=== PATIENT | female | born 1945 | race Caucasian/White ===

== ENCOUNTER 2022-10-05 20:25 | Emergency (ER) | payer MEDICARE ==
--- NOTE | 2022-10-05 20:53 | ERPHSYRPT ---
- History of Present Illness Source: patient Exam Limitations: no limitations Patient Subjective Stated Complaint: pt states I was taking out boxing and missed the last step Triage Nursing Assessment: pt came into the er via wheelchair; pt transfered to cot per self; pt is axo x4; c/o rt foot injury; no respiratory distress present; good cap refill to RLE; strong rt pedal pulse; limited ROM to RLE; hypertensive: skin PDW Physician History: 77 yo wf slipped and fell after missing bottom step at her house 2 hours ago. Pt complains of R foot pain which is moderate and worse w weight bearing. She denies other injuries at this time, including head injury/cervical, thoracic, and lumbar injury/chest-thoracic pain/abdominal pain/upper extremity pain/hip pain. Method of Injury: fell Occurred: hours ago (2 hours) Quality: constant, aching Severity of Pain-Max: moderate Severity of Pain-Current: moderate Lower Extremities Pain: ankle: right Modifying Factors: Improves With: movement (Weight besring) Allergies/Adverse Reactions: No Known Drug Allergies Allergy (Unverified 10/05/22 20:30) Home Medications: Dorzolamide HCl/Timolol Maleat [Dorzolamide-Timolol Eye Drops] 1 drop OP BID 10/05/22 [History] Latanoprost/Pf [Latanoprost 0.005% Eye Drop] 1 drop OP HS 10/05/22 [History] Levothyroxine Sodium [Levothyroxine] 150 mcg PO DAILY 10/05/22 [History] Rosuvastatin Calcium 10 mg PO DAILY 10/05/22 [History] Hx Tetanus, Diphtheria Vaccination/Date Given: Yes Hx Influenza Vaccination/Date Given: Yes Hx Pneumococcal Vaccination/Date Given: Yes Travel Risk - International Travel Have you traveled outside of the country in past 3 weeks: No - Coronavirus Screening Are you exhibiting any of the following symptoms?: No Close contact with a COVID-19 positive Pt in past 14-21 Days: No - Vaccine Status Have you recieved a Covid-19 vaccination: Yes [employer]: Moderna - Vaccination Dates Date of 2cond Vaccination (if applicable): 11/30/20 - Review of Systems Constitutional: No Symptoms Eyes: No Symptoms Ears, Nose, & Throat: No Symptoms Respiratory: No Symptoms Cardiac: No Symptoms Abdominal/Gastrointestinal: No Symptoms Genitourinary Symptoms: No Symptoms Skin: No Symptoms Neurological: No Symptoms Psychological: No Symptoms Endocrine: No Symptoms Hematologic/Lymphatic: No Symptoms Immunological/Allergic: No Symptoms - Past Medical History Pertinent Past Medical History: Yes Neurological History: No Pertinent History ENT History: Cataracts, Glaucoma Cardiac History: No Pertinent History Respiratory History: No Pertinent History Endocrine Medical History: Hypothyroidism Musculoskeletal History: Arthritis GI Medical History: Hemorrhoids History: No Pertinent History Psycho-Social History: No Pertinent History Female Reproductive Disorders: No Pertinent History - Past Surgical History Past Surgical History: Yes Neuro Surgical History: No Pertinent History Cardiac: No Pertinent History Respiratory: No Pertinent History Gastrointestinal: Hemorrhoidectomy Genitourinary: No Pertinent History Musculoskeletal: No Pertinent History Female Surgical History: No Pertinent History - Social History Smoking Status: Never smoker Exposure to second hand smoke: No Drug Use: none Patient Lives Alone: Yes - Nursing Vital Signs Nursing Vital Signs: Initial Vital Signs Temperature 98.5 F 10/05/22 20:32 Pulse Rate 80 10/05/22 20:32 Respiratory Rate 20 10/05/22 20:32 Blood Pressure 178/116 10/05/22 20:32 O2 Sat by Pulse Oximetry 97 10/05/22 20:32 Pain Scale Pain Intensity 5 Hypertensive - Physical Exam General Appearance: no apparent distress Eyes, Ears, Nose, Throat Exam: normal ENT inspection, TMs normal, pharynx normal, moist mucous membranes Neck Exam: normal inspection (C-spine NTTP) Cardiovascular/Respiratory Exam: chest non-tender, regular rate/rhythm, rales (Rales at bases B) Gastrointestinal/Abdominal Exam: non-tender, soft Back Exam: normal inspection, normal range of motion, No CVA tenderness, No vertebral tenderness Hips Exam: bilateral: non-tender, normal inspection, normal range of motion, no evidence of injury Legs Exam: bilateral leg: non-tender, normal inspection, normal range of motion, no evidence of injury Knees Exam: bilateral knee: non-tender, normal inspection, normal range of motion, no evidence of injury Ankle Exam: bilateral ankle: non-tender, normal inspection, normal range of motion, no evidence of injury Foot Exam: right foot: bone tenderness (TTP R dorsal foot w moderate TTP/Good pedal pulse, distal sensation, and capillary return) Neuro/Tendon Exam: normal sensation, normal motor functions, normal tendon functions, responds to pain, no evidence tendon injury, No motor deficit, No sensory deficit Mental Status Exam: alert, oriented x 3, cooperative Skin Exam: normal color, warm, dry SpO2 Interpretation: normal SpO2: 97 O2 Delivery: Room Air - Course Nursing assessment & vital signs reviewed: Yes - Radiology Exams Ankle X-ray Interpretation: Interpreted by me (Neg) Foot X-ray Interpretation: Discussed w/ radiologist (R foot neg per Rad) Ordered Tests: Active Orders 24 hr Category Date Time Status [facility] 10/05/22 21:25 Completed Splint STAT Care 10/05/22 21:25 Completed ANKLE (2V) Stat Exams 10/05/22 20:33 Taken FOOT (MINIMUM 3 VIEWS) Stat Exams 10/05/22 20:33 Taken Medication Summary Discontinued Medications Generic Name Dose Route Start Last Admin Trade Name Caryl PRN Reason Stop Dose Admin Hydrocodone Bitart/Acetaminophen 2 tab 10/05/22 21:26 10/05/22 21:29 Hydrocodone/Apap 5/325 1 Tab Tablet PO 10/05/22 21:27 2 tab SENT HOME W/ PATIENT ONE Administration Hydrocodone Bitart/Acetaminophen Confirm 10/05/22 21:29 Hydrocodone/Apap 5/325 1 Tab Tablet Administered 10/05/22 21:30 Dose 2 tab .ROUTE .STK-MED ONE Ibuprofen 400 mg 10/05/22 20:58 10/05/22 21:01 Ibuprofen 400 Mg Tablet PO 10/05/22 20:59 400 mg STAT ONE Administration Ibuprofen Confirm 10/05/22 21:00 Ibuprofen 400 Mg Tablet Administered 10/05/22 21:01 Dose 400 mg .ROUTE .STK-MED ONE - Progress Progress: improved Progress Note: 10/05/22 21:27 Nursing note and vital signs reviewed No food or housing insecurities noted XR results reviewed and shared w pt Pt refused IM Toradol, so 400mg po Motrin given Keenan wrap R foot-post op shoe per nursing/NVI Counseled pt/family regarding: diagnosis, need for follow-up, rad results - Departure Departure Disposition: Home Clinical Impression: Contusion of right foot Condition: Stable Critical Care Time: No Referrals: DARI MISTRY MD [Primary Care Provider] - Follow up/PCP as directed Instructions: Contusion (DC) Additional Instructions: Pain meds as needed Weight bearing as tolerated Ice for 12-24 hours Follow up with your family MD for continued pain Return to ER as needed Forms: Work/School Release Form
[2022-10-05] MEDS ORDERED: MOTRIN 400 MG PO ONE (20:58)
[2022-10-05] MEDS ORDERED: MOTRIN 400 MG ONE (21:00)
[2022-10-05 21:21] VITALS: BP 158/50
[2022-10-05] MEDS ORDERED: NORCO 5/325 MG PO ONE (21:26)
[2022-10-05] MEDS ORDERED: NORCO 5/325 MG ONE (21:29)
[2022-10-05 21:34] VITALS: PULSE 80
[2022-10-05 21:38] VITALS: O2SAT 97
--- NOTE | 2022-10-06 08:37 | XRAY ---
Indication: Pain and swelling following fall. Comparison: None 3 nonweightbearing views right foot demonstrates osteopenia and mild forefoot soft tissue swelling. No other bony, articular, or soft tissue abnormalities.
--- NOTE | 2022-10-06 08:37 | XRAY ---
Indication: Pain and swelling following fall. Comparison: None 2 view right ankle demonstrates osteopenia. No other bony, articular, or soft tissue abnormalities.
== END 2022-10-05 21:39 | disposition home or self-care (01) ==
LOC: ED 20:25
DX: S90.31XA Contusion of right foot, initial encounter (principal); W10.8XXA Fall (on) (from) other stairs and steps, initial encounter; Y92.007 Garden or yard of unspecified non-institutional (private) residence as the place of occurrence of the external cause; Z79.899 Other long term (current) drug therapy
CPT/HCPCS: 73600; 73630; 99283; A9270-GY

== ENCOUNTER 2023-03-16 15:28 | Emergency (ER) | payer MEDICARE, OTHER ==
--- NOTE | 2023-03-16 15:41 | ERPHSYRPT ---
- History of Present Illness Time Seen by Provider: 03/16/23 15:40 Source: patient Exam Limitations: no limitations Physician History: This is a 77-year-old white female patient who was mopping the kitchen here in the hospital and she slipped on the wet floor hurting her left ankle. Pain is mostly in the outer aspect. There is no obvious deformity but there is constant throbbing. The patient has a history of hypothyroidism, glaucoma and hyperlipidemia. Patient did not hit her head. She has no headache and she has no neck or back pain. Method of Injury: fell Occurred: just prior to arrival Quality: constant, throbbing Severity of Pain-Max: moderate Severity of Pain-Current: moderate Lower Extremities Pain: ankle: left (Outer aspect) Modifying Factors: Improves With: movement Associated Symptoms: other (Hurts to bear weight) Allergies/Adverse Reactions: No Known Drug Allergies Allergy (Unverified 03/16/23 15:42) Home Medications: Dorzolamide HCl/Timolol Maleat [Dorzolamide-Timolol Eye Drops] 1 drop OP BID 10/05/22 [History] Latanoprost/Pf [Latanoprost 0.005% Eye Drop] 1 drop OP HS 10/05/22 [History] Levothyroxine Sodium [Levothyroxine] 150 mcg PO DAILY 10/05/22 [History] Hx Tetanus, Diphtheria Vaccination/Date Given: Yes Hx Influenza Vaccination/Date Given: Yes Hx Pneumococcal Vaccination/Date Given: Yes Travel Risk - International Travel Have you traveled outside of the country in past 3 weeks: No - Coronavirus Screening Are you exhibiting any of the following symptoms?: No Close contact with a COVID-19 positive Pt in past 14-21 Days: No - Vaccine Status Have you recieved a Covid-19 vaccination: Yes [employer]: Moderna - Vaccination Dates Date of 2cond Vaccination (if applicable): 11/30/20 - Review of Systems Constitutional: No Symptoms Eyes: No Symptoms Ears, Nose, & Throat: No Symptoms Respiratory: No Symptoms Cardiac: No Symptoms Abdominal/Gastrointestinal: No Symptoms Genitourinary Symptoms: No Symptoms Musculoskeletal: Fall, Injury (Left ankle) Skin: No Symptoms Neurological: No Symptoms Psychological: No Symptoms Endocrine: No Symptoms Hematologic/Lymphatic: No Symptoms Immunological/Allergic: No Symptoms All Other Systems: Reviewed and Negative - Past Medical History Pertinent Past Medical History: Yes Neurological History: No Pertinent History ENT History: Cataracts, Glaucoma Cardiac History: No Pertinent History Respiratory History: No Pertinent History Endocrine Medical History: Hypothyroidism Musculoskeletal History: Arthritis GI Medical History: Hemorrhoids History: No Pertinent History Psycho-Social History: No Pertinent History Female Reproductive Disorders: No Pertinent History - Past Surgical History Past Surgical History: Yes Neuro Surgical History: No Pertinent History Cardiac: No Pertinent History Respiratory: No Pertinent History Gastrointestinal: Hemorrhoidectomy Genitourinary: No Pertinent History Musculoskeletal: No Pertinent History Female Surgical History: No Pertinent History - Social History Smoking Status: Never smoker Exposure to second hand smoke: No Drug Use: none Patient Lives Alone: Yes - Nursing Vital Signs Nursing Vital Signs: Initial Vital Signs Pulse Rate 72 03/16/23 15:38 Respiratory Rate 16 03/16/23 15:38 Blood Pressure 137/77 03/16/23 15:38 O2 Sat by Pulse Oximetry 99 03/16/23 15:38 Pain Scale Pain Intensity 7 - Physical Exam General Appearance: no apparent distress, alert, anxiety, thin Eyes, Ears, Nose, Throat Exam: normal ENT inspection, moist mucous membranes Neck Exam: normal inspection, non-tender, supple, full range of motion Cardiovascular/Respiratory Exam: chest non-tender, no respiratory distress Gastrointestinal/Abdominal Exam: non-tender Back Exam: normal inspection, normal range of motion, No CVA tenderness, No vertebral tenderness Hips Exam: bilateral: non-tender, normal inspection, normal range of motion, no evidence of injury Legs Exam: bilateral leg: non-tender, normal inspection, normal range of motion, no evidence of injury Knees Exam: bilateral knee: non-tender, normal inspection, normal range of motion, no evidence of injury Ankle Exam: right ankle: non-tender, normal inspection, normal range of motion, left ankle: no evidence of injury, bone tenderness (Outer aspect), limited range of motion, soft tissue tenderness (Outer aspect) Foot Exam: bilateral foot: non-tender, normal inspection, normal range of motion, no evidence of injury Neuro/Tendon Exam: normal sensation, normal motor functions, normal tendon functions, responds to pain, no evidence tendon injury Mental Status Exam: alert, oriented x 3, cooperative Skin Exam: normal color, warm, dry SpO2 Interpretation: normal O2 Delivery: Room Air - Course Nursing assessment & vital signs reviewed: Yes Ordered Tests: Active Orders 24 hr Category Date Time Status ANKLE (3 VIEWS) Stat Exams 03/16/23 15:51 Completed - Progress Progress: unchanged, pain not gone completely, re-examined Progress Note: 03/16/23 16:37 X-ray of the left ankle reveals no acute fracture or dislocation. This was interpreted by the radiologist and I reviewed the impression. This patient's medical issue is 1 of low complexity. Level complexity in the workup performed is based on review of the patient's past medical history, review of the patient's medication list, review the patient's drug allergy list, history of present illness and physical findings on examination. Workup in this patient includes x-ray of the left ankle. There is no evidence of any acute fracture or dislocation. The patient requests ibuprofen and an Keenan wrap. Counseled pt/family regarding: diagnosis, need for follow-up, rad results Medical Desision Making - Diagnostic Testing Diagnostic test were ordered, analyzed, and reviewed by me: Yes Radiological Interpretation: Reviewed by me, Teleradiologist Report - Risk of complications Minimal Risk: Minimal risk of morbidity - Departure Departure Disposition: Home Clinical Impression: Left ankle sprain Condition: Stable Critical Care Time: No Referrals: DARI MISTRY MD [Primary Care Provider] - Follow up/PCP as directed Additional Instructions: Ice pack to the tender area 3 times a day for the next 48 hours. Wear the Keenan wrap for comfort. Elevate the left leg above the level of the heart when not ambulating. Use Tylenol and ibuprofen for pain control. Follow-up with Dr. Pineda, podiatry if pain persist. You may also follow-up with your primary care physician for further evaluation and management of persistent pain in the left ankle.
[2023-03-16 15:48] VITALS: BP 137/77; RESP 16
--- NOTE | 2023-03-16 16:28 | XRAY ---
Indication: Pain following fall. Comparison: None 3 view left ankle demonstrates osteopenia and minimal scattered vascular calcifications. No other bony, articular, or soft tissue abnormalities.
[2023-03-16] MEDS ORDERED: MOTRIN 600 MG PO ONE (16:39)
[2023-03-16] MEDS ORDERED: MOTRIN 600 MG ONE (16:43)
[2023-03-16 16:53] VITALS: PULSE 78; O2SAT 97
== END 2023-03-16 17:17 | disposition home or self-care (01) ==
LOC: ED 15:28
DX: S93.402A Sprain of unspecified ligament of left ankle, initial encounter (principal); W01.0XXA Fall on same level from slipping, tripping and stumbling without subsequent striking against object, initial encounter; Y93.E5 Activity, floor mopping and cleaning; Y92.233 Cafeteria of hospital as the place of occurrence of the external cause; Y99.0 Civilian activity done for income or pay; E78.5 Hyperlipidemia, unspecified; Z79.899 Other long term (current) drug therapy
CPT/HCPCS: 73610; 99283; A9270-GY